=== PATIENT | female | born 1965 | race Caucasian/White ===

== ENCOUNTER → 2016-09-20 | Outpatient (CLI) | payer OTHER | LOC: FIMAGING 13:02 | DX: Z12.31 Encounter for screening mammogram for malignant neoplasm of breast (principal) | CPT/HCPCS: G0202 ==

== ENCOUNTER → 2017-10-07 | Outpatient (CLI) | payer OTHER | LOC: FIMAGING 13:56 | PROVIDERS: ATTEND Obstetrics & Gynecology | DX: Z12.31 Encounter for screening mammogram for malignant neoplasm of breast (principal) ==

== ENCOUNTER → 2018-01-29 | Outpatient (CLI) | payer OTHER | LOC: FIMAGING 11:14 | PROVIDERS: ATTEND Obstetrics & Gynecology | DX: Z13.820 Encounter for screening for osteoporosis (principal); M85.89 Other specified disorders of bone density and structure, multiple sites; Z78.0 Asymptomatic menopausal state; Z79.890 Hormone replacement therapy; Z82.62 Family history of osteoporosis ==

== ENCOUNTER 2018-07-26 08:07 | Emergency (ER) | payer OTHER ==
[2018-07-26] MEDS ORDERED: KETOROLAC 30 MG/1 ML SDV IVP ONE (08:35)
[2018-07-26] MEDS ORDERED: NS 1,000 ML IV ONE (08:35)
[2018-07-26 08:57] LABS: PLATELET COUNT 190 10^3/uL (150-400)
[2018-07-26] MEDS ORDERED: HYDROmorphONE/DILAUDID 2 MG/ML INJ IVP ONE (08:57)
[2018-07-26] MEDS ORDERED: IOPAMIDOL (ISOVUE-300) 100 ML BTL ONE (09:51)
--- NOTE | 2018-07-26 10:35 | EDPHY ---
HPI/HX/ROS/PE/MDM Narrative: CHIEF COMPLAINT: Abdominal pain HPI: The patient is a 52-year-old female with no history of prior abdominal surgery. She reports 3 episodes of severe abdominal cramping over the last month. Most recent 1 occurred early this morning. She describes it as severe cramping, causing her to double over, located primarily in her umbilical and epigastric region. She denies vomiting or diarrhea. She denies recent trauma. She denies fever or chills. She denies dysuria. REVIEW OF SYSTEMS: Aside from elements discussed in the HPI, a comprehensive 10-point review of systems was reviewed and is negative. PMH: No history of abdominal surgery. No syncope past medical history. SOCIAL HISTORY: Denies alcohol or drug abuse. PHYSICAL EXAM: General:Patient is alert, in no acute distress. She appears uncomfortable. ENT:Eyes are normal to inspection. ENT inspection normal. Neck: Normal inspection. Full range of motion. Respiratory:No respiratory distress. Breath sounds normal bilaterally. Cardiovascular: Regular rate and rhythm. Strong peripheral pulses. Normal cap refill. Abdomen:The abdomen is nontender to palpation. There are no peritoneal signs. There are normal bowel sounds. Back: Normal to inspection. No tenderness to palpation. Skin: Normal color. No rash. Warm and dry. Extremities: Normal appearance. Full range of motion. Neuro: Oriented x3. Normal motor function. Normal sensory function. ED Course: The patient was treated initially with IV Toradol, followed by an additional dose of IV Dilaudid. CT abdomen pelvis as read by Dr. Ware reveals severe constipation without evidence of bowel obstruction or mass. Incidentally noted are signs of possible pelvic congestion syndrome and an L2 disc bulge, but I do not think either of these is contributing to her current presentation. I had an extensive discussion with the patient regarding our workup and findings. She is comfortable with the plan to go home and try laxatives as well as enema and see if this relieves her symptoms. I have also referred her to GI. I encouraged her to return to the ED for any worsening of symptoms or failure to improve following stool. MDM: There is no evidence of diverticulitis, appendicitis, bowel obstruction, bowel perforation or sepsis. - Data Points Imaging Results: Imaging Impressions Abdomen Ultrasound 07/26/18 08:35 Impression: Normal study. Results were communicated to Dr. Stephen Russ 9:[address] 03/09/19 09:41 Impression: 1. Severe constipation. 2. 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 If this is a clinical issue for the patient, then recommend consultation with Dr. Eloisa Alexandre of our interventional radiology service ([phone]) to consider gonadal vein embolization therapy. 3. Large disk bulge or protrusion at L2-L3. Results discussed with Dr. Stephen najera 10:27 AM. General information for patients regarding this examination can be found at [email or web address]. If you have questions or comments about this report, please contact me at (hospital) or [phone] (cell). Imaging: Discussed imaging studies w/ liquor bridge operator Radiologist, I viewed and interpreted images myself Laboratory Results: Laboratory Results 07/26/18 08:30 07/26/18 08:30 07/26/18 07/26/18 07/26/18 08:30 08:30 08:15 WBC 4.02 10^3/uL 10^3/uL (3.80-9.50) RBC 4.43 10^6/uL 10^6/uL (4.18-5.33) Hgb 14.1 g/dL g/dL (12.6-16.3) Hct 40.7 % % (38.0-47.0) MCV 91.9 fL fL (81.5-99.8) MCH 31.8 pg pg (27.9-34.1) MCHC 34.6 g/dL g/dL (32.4-36.7) RDW 12.8 % % (11.5-15.2) Plt Count 190 10^3/uL 10^3/uL (150-400) MPV 9.1 fL fL (8.7-11.7) Neut % (Auto) 35.7 % L % (39.3-74.2) Lymph % (Auto) 28.1 % % (15.0-45.0) [place] % (Auto) 6.2 % % (4.5-13.0) Eos % (Auto) 28.6 % H % (0.6-7.6) Baso % (Auto) 1.2 % % (0.3-1.7) Nucleat RBC Rel Count 0.0 % % (0.0-0.2) Absolute Neuts (auto) 1.43 10^3/uL L 10^3/uL (1.70-6.50) Absolute Lymphs (auto) 1.13 10^3/uL 10^3/uL (1.00-3.00) Absolute Monos (auto) 0.25 10^3/uL L 10^3/uL (0.30-0.80) Absolute Eos (auto) 1.15 10^3/uL H 10^3/uL (0.03-0.40) Absolute Basos (auto) 0.05 10^3/uL 10^3/uL (0.02-0.10) Absolute Nucleated RBC 0.00 10^3/uL 10^3/uL (0-0.01) Immature Gran % 0.2 % % (0.0-1.1) Immature Gran # 0.01 10^3/uL 10^3/uL (0.00-0.10) Smear Review By Pending Sodium 138 mEq/L mEq/L (135-145) Potassium 3.9 mEq/L mEq/L (3.5-5.2) Chloride 105 mEq/L mEq/L (97-110) Carbon Dioxide 24 mEq/l mEq/l (22-31) Anion Gap 9 mEq/L mEq/L (6-14) BUN 15 mg/dL mg/dL (7-23) Creatinine 1.0 mg/dL mg/dL (0.6-1.0) Estimated GFR 59 Glucose 101 mg/dL H mg/dL (70-100) Calcium 9.9 mg/dL mg/dL (8.5-10.4) Total Bilirubin 0.9 mg/dL mg/dL (0.1-1.4) Conjugated Bilirubin 0.3 mg/dL mg/dL (0.0-0.5) Unconjugated Bilirubin 0.6 mg/dL mg/dL (0.0-1.1) AST 44 IU/L IU/L (14-46) ALT 44 IU/L IU/L (9-52) Alkaline Phosphatase 85 IU/L IU/L (38-126) Total Protein 7.1 g/dL g/dL (6.3-8.2) Albumin 4.4 g/dL g/dL (3.5-5.0) Lipase 136 IU/L IU/L (23-300) Urine Color YELLOW Urine Appearance MODERATELY TURBID Urine pH 9.0 H (5.0-7.5) Ur Specific [place] 1.011 (1.002-1.030) Urine Protein NEGATIVE (NEGATIVE) Urine Ketones NEGATIVE (NEGATIVE) Urine Blood NEGATIVE (NEGATIVE) Urine Nitrate NEGATIVE (NEGATIVE) Urine Bilirubin NEGATIVE (NEGATIVE) Urine Urobilinogen NEGATIVE EU EU (0.2-1.0) Ur Leukocyte Esterase NEGATIVE (NEGATIVE) Urine Glucose NEGATIVE (NEGATIVE) Medications Given: Discontinued Medications Hydromorphone HCl (Dilaudid) 0.5 mg IVP EDNOW ONE Stop: 07/26/18 08:58 Last Admin: 07/26/18 09:05 Dose: 0.5 mg Sodium Chloride (Ns) 1,000 mls @ 0 mls/hr IV ONCE ONE; Wide Open PRN Reason: Protocol Stop: 07/26/18 08:36 Last Admin: 07/26/18 08:38 Dose: 1,000 mls Ketorolac Tromethamine (Toradol) 30 mg IVP EDNOW ONE Stop: 07/26/18 08:36 Last Admin: 07/26/18 08:38 Dose: 30 mg General Time Seen by Provider: 07/26/18 08:13 Initial Vital Signs: Initial Vital Signs Temperature (C) 36.6 C 07/26/18 08:11 Heart Rate 58 L 07/26/18 08:11 Respiratory Rate 20 07/26/18 08:11 Blood Pressure 123/75 H 07/26/18 08:11 O2 Sat (%) 99 07/26/18 08:11 O2 Delivery Mode Room Air Allergies/Adverse Reactions: No Known Allergies Allergy (Unverified 07/26/18 08:10) Home Medications: Medication Instructions Recorded Progesterone 07/26/18 Departure - Departure Disposition: Home, Routine, Self-Care Clinical Impression: Abdominal pain, Constipation Condition: Good Instructions: Constipation (ED) Additional Instructions: Follow-up with your primary doctor within 72 hours. Return to the Emergency Department for worsening pain, fever, severe vomiting, change in character or severity of pain or other worsening of condition. By and use [id number] Fleet's enema as well as a mild oral laxative. This should result in several fairly large stools. We recommend you follow-up with a director of scout work within the next week for re -evaluation. Referrals: Jordyn Gilmore MD [Primary Care Provider] - As per Instructions Adrian Hylton MD [Medical Doctor] - As per Instructions
[2018-07-26 10:46] VITALS: BP 94/59
== END 2018-07-26 10:46 | disposition home or self-care (01) ==
DX: K59.00 Constipation, unspecified (principal); I87.8 Other specified disorders of veins; M51.26 Other intervertebral disc displacement, lumbar region; E86.9 Volume depletion, unspecified
CPT/HCPCS: 96374; J1170; J1885; Q9967

== ENCOUNTER → 2018-10-07 | Outpatient (CLI) | payer OTHER | LOC: BMCIMAGING 09:04 | PROVIDERS: ATTEND Internal Medicine | DX: R07.81 Pleurodynia (principal); R93.7 Abnormal findings on diagnostic imaging of other parts of musculoskeletal system ==